=== PATIENT | male | born 1990 | race Two or more races ===

== ENCOUNTER 2020-05-26 21:38 | Emergency (ER) | payer OTHER ==
[~2020-05-26] VITALS: Ht 180.3 cm; Wt 100.0 kg
[2020-05-26] MEDS ORDERED: IBUPROFEN 600 MG TABLET PO ONE (22:30)
[2020-05-26 23:47] VITALS: BP 126/82
== END 2020-05-26 23:48 | disposition home or self-care (01) ==
LOC: EMS 21:38
DX: M92.51 Juvenile osteochondrosis of proximal tibia (principal); M25.561 Pain in right knee; J45.909 Unspecified asthma, uncomplicated; F17.210 Nicotine dependence, cigarettes, uncomplicated
CPT/HCPCS: 29530